=== PATIENT | male | born 1995 ===

== ENCOUNTER 2018-04-21 21:33 | Emergency (ER) | payer SELFPAY ==
[2018-04-21 22:15] VITALS: RESP 18
--- NOTE | 2018-04-21 22:29 | ED PDOC ---
Upper Extremity Pain/Injury Chief Complaint (Provider): right shoulder injury History Per: Patient History/Exam Limitations: no limitations Onset/Duration Of Symptoms: Hrs (1) Current Symptoms Are (Timing): Still Present Additional Complaint(s): 22 y/o male presents for evaluation of pain to right shoulder x 1 hour. Patient states he was playing soccer and fell on right side, since then has not been able to move shoulder due to pain. Denies numbness/weakness right upper extremity. No medication taken for relief thus far. <Jennyfer Pardo - Last Filed: 04/22/18 01:13> <Morgan Noe - Last Filed: 04/22/18 04:19> Time Seen by Provider: 04/21/18 22:22 Chief Complaint (Nursing): Upper Extremity Problem/Injury Supervising Attending Note - Supervising Attending Note The Documented history was done by the: Physician Director Of Cardiac Rehabilitation The documented physical exam was done by the: Physician Director Of Cardiac Rehabilitation The documented procedures were done by the: Physician Director Of Cardiac Rehabilitation, Attending Physician - Attestation: I have personally seen and examined this patient.: Yes I have fully participated in the care of the patient.: Yes I have reviewed all pertinent clinical information: Yes <Morgan Noe - Last Filed: 04/22/18 04:19> Past Medical History Reviewed: Historical Data, Nursing Documentation, Vital Signs Vital Signs: Last Vital Signs Temp 98.1 F 04/21/18 22:12 Pulse 94 H 04/21/18 22:12 Resp 18 04/21/18 22:12 BP 127/81 04/21/18 22:12 Pulse Ox 100 04/21/18 22:12 - Medical History PMH: No Chronic Diseases - Surgical History Surgical History: No Surg Hx - Family History Family History: States: No Known Family Hx <Jennyfer Pardo - Last Filed: 04/22/18 01:13> Vital Signs: Last Vital Signs Temp 98.1 F 04/21/18 22:12 Pulse 94 H 04/21/18 22:12 Resp 18 04/21/18 22:12 BP 127/81 04/21/18 22:12 Pulse Ox 100 04/21/18 23:27 <Morgan Noe - Last Filed: 04/22/18 04:19> - Home Medications Home Medications: Ambulatory Orders Medication Instructions Recorded Ibuprofen [Motrin Tab] 1 tab PO Q6 PRN #15 tab 04/22/18 - Allergies Allergies/Adverse Reactions: Allergies Allergy/AdvReac Type Severity Reaction Status Date / Time No Known Allergies Allergy Verified 04/21/18 22:12 Review of Systems ROS Statement: Except As Marked, All Systems Reviewed And Found Negative Musculoskeletal: Positive for: Shoulder Pain (right) <Jennyfer Pardo C - Last Filed: 04/22/18 01:13> Physical Exam - Reviewed Nursing Documentation Reviewed: Yes Vital Signs Reviewed: Yes - Physical Exam Appears: Positive for: Well, Non-toxic, No Acute Distress Skin: Positive for: Normal Color Cardiovascular/Chest: Positive for: Regular Rate, Rhythm Respiratory: Positive for: Normal Breath Sounds Extremity: Positive for: Capillary Refill (<2 sec b/l UE), Deformity (+ deformity right shoulder; limited ROM due to pain). Negative for: Swelling Neurologic/Psych: Positive for: Alert, Oriented. Negative for: Motor/Sensory Deficits <Jennyfer Pardo C - Last Filed: 04/22/18 01:13> - ECG O2 Sat by Pulse Oximetry: 100 - Other Rad right shoulder xray X-Ray: Interpreted by Me, Viewed By Me X-Ray Interpretation: +dislocation right shoulder xray post-reduction X-Ray: Viewed By Me X-Ray Interpretation: NAD - Progress ED Course And Treament: xray, IV morphine Patient educated on findings, consent obtained for right shoulder reduction with conscious sedation 23:40 Shoulder reduced successfully. Patient sleeping but arousable to verbal stimuli Patient placed in shoulder immobilizer 04/22/18 00:00 patient sleeping; arousable to verbal stimuli 00:30 Patient awake, states he is feeling better Vitals, PO challenge ordered 1:00 Patient awake, alert, oriented x3. Tolerating PO. Stable for discharge Patient educated on findings, advised follow up ortho Rx ibuprofen given RICE Return precautions given <Jennyfer Pardo C - Last Filed: 04/22/18 01:13> Procedures - Joint Reduction Joint Reduction Site: shoulder (R) Conscious Sedation: Yes Reduction Attempts: 1 Pre-Procedure NV Exam: Yes Post Joint Reduction Film: joint reduced (NV intact post-reduction) <Jennyfer Pardo C - Last Filed: 04/22/18 01:13> - Joint Reduction Joint Reduction Site: shoulder (R) Conscious Sedation: Yes <TaytramMorgan sorto - Last Filed: 04/22/18 04:19> Disposition - Patient ED Disposition Is Patient to be Admitted: No Counseled Patient/Family Regarding: Studies Performed, Diagnosis, Need For Followup, Rx Given - Disposition Disposition: Routine/Home Disposition Time: 01:00 <Jennyfer Pardo - Last Filed: 04/22/18 01:13> <Morgan Noe - Last Filed: 04/22/18 04:19> - Clinical Impression Clinical Impression: Dislocation of right shoulder joint - Disposition Referrals: Elsa Mendoza MD [Staff Provider] - Condition: IMPROVED Prescriptions: Ibuprofen [Motrin Tab] 1 tab PO Q6 PRN #15 tab PRN Reason: Pain, Moderate (4-7) Instructions: Shoulder Dislocation, Moderate Sedation in Adults Forms: [employer] (Gabonese), [facility] ED School/Work Excuse ED Procedural Sedation <Jennyfer Pardo - Last Filed: 04/22/18 01:13> - Pre Anesthesia Assessment Past Medical History: Medications Reviewed, Allergies Reviewed, Record Review Previous Surgies: Reviewed Family History/Social History: Reviewed - Physical Exam/Review of Systems Vital Signs Reviewed: Yes Cardiovascular: Regular Rate and Rhythm Respiratory/Chest: Clear to Auscultation, Good Air Exchange Neurological: CN II-XII Intact, Speech Normal Mental Status: Alert and Oriented X 3 - Pre-Procedure Airway Assessment History of difficult intubation or surgical airway(i.e trach: No Inability to extend neck:: No Mouth opening less than two finger breadth:: No Diagnosis of sleep apnea:: No Less than three finger breadth to hyoid bone:: No ASA Criteria: 1 - Healthy, normal. 2 - Mild systemic disease (No functional limitations, mildline obesity, DM withot complications, Hypertention). 3 - Severe systemic disease (Some functional limitation, stable angina, morbid obesity, controlled COPD/Asthma/CHF). 4 - Sever systemic disease constant threat to life (Unstable angina, active symptoms of COPD/Asthma, CHF/ Hypertension. 5 - Moribund ASA Clarification: ASA I Mallampati (airway): Class I - Intra-Procedure (Medications) Medications Given: Sodium Chloride (Sodium Chloride 0.9%) 1,000 mls @ 1,000 mls/hr IV .Q1H STA Stop: 04/22/18 00:10 Last Admin: 04/21/18 23:25 Dose: 1,000 mls/hr eMAR Start Stop Document 04/21/18 23:25 [email or web address] (Rec: 04/21/18 23:25 [email or web address]) Intravenous Solution Start Date 04/21/18 Start Time 23:25 End Date 04/20/18 End time 00:25 Total Infusion Time -2820 Discontinued Medications Morphine Sulfate (Morphine) 2 mg IV ONCE ONE Stop: 04/21/18 22:29 Last Admin: 04/21/18 22:37 Dose: 2 mg eMAR Start Stop Document 04/21/18 22:37 [email or web address] (Rec: 04/21/18 22:38 [email or web address]) Intravenous Solution Start Date 04/21/18 Start Time 22:38 MAR Pain Assessment Document 04/21/18 22:37 [email or web address] (Rec: 04/21/18 22:38 [email or web address]) Pain Reassessment Is this a pain reassessment? No Sleep Is patient sleeping during reassessment? No Presence of Pain Presence of Pain Yes Pain Scale Used Pain Scale Used Numeric Location Left, Right or Bilateral Right Pain Location Body Site Shoulder Description Description Constant Intensity of Pain at present 8 Pain Behavior Crying Guarding Aggravating Factors ADL's Alleviating Factors/Management Medication Techniques Alleviating Factors Medication Re-Assess: [facility] Pain Assessment Document 04/21/18 23:37 [email or web address] (Rec: 04/21/18 23:53 [email or web address]) Pain Reassessment Is this a pain reassessment? Yes Sleep Is patient sleeping during reassessment? Yes Presence of Pain Presence of Pain No Description Intensity of Pain at present 0 Morphine Sulfate (Morphine) 4 mg IVP ONCE ONE Stop: 04/21/18 23:31 Last Admin: 04/21/18 23:30 Dose: Not Given Non-Admin Reason: Patient Refused Propofol (Diprivan) 100 mg IV ONCE ONE Stop: 04/21/18 23:12 Last Admin: 04/21/18 23:24 Dose: 100 mg eMAR Start Stop Document 04/21/18 23:24 [email or web address] (Rec: 04/21/18 23:25 [email or web address]) Intravenous Solution Start Date 04/21/18 Start Time 23:35 Nguyen Agitation Sedation Document 04/21/18 23:24 [email or web address] (Rec: 04/21/18 23:25 [email or web address]) Nguyen Agitation Sedation Scale Nguyen Agitation Sedation Scale Score 0 Alert and Calm: 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 Patient was administered procedural sedation 150mg of propofol with deep sedation achieved. Patient tolerated reduction well. <Morgan Noe - Last Filed: 04/22/18 04:19> - Pre Anesthesia Assessment Chief Complaint: Upper Extremity Problem/Injury
[2018-04-21] MEDS ORDERED: Propofol 10 mg/ml Inj (20 ML) IV ONE ×2 (23:11→23:42)
[2018-04-21] MEDS ORDERED: Sodium Chloride 0.9% 1,000 ML IV STA (23:11)
[2018-04-21] MEDS ORDERED: Propofol 10 mg/ml Inj (20 ML) ONE (23:24)
[2018-04-21] MEDS ORDERED: Morphine 4 MG/ML VIAL ONE (23:25)
[2018-04-21] MEDS: Morphine 4 MG/ML VIAL IVP ONE ×2 (23:30)
[2018-04-22 01:25] VITALS: BP 120/64; PULSE 82; TEMP 97.5; O2SAT 98
--- NOTE | 2018-04-22 10:09 | RAD ---
PROCEDURE: Radiographs of the Right Shoulder HISTORY: post reduction COMPARISON: No prior. FINDINGS: BONES: No definitive evidence of acute displaced fracture nor dislocation. JOINTS: Interval reduction previously noted dislocated right humeral head. No significant degenerative osteoarthritis SOFT TISSUES: Normal. OTHER FINDINGS: None. IMPRESSION: Interval reduction previously noted dislocated right humeral head No acute fractures.
--- NOTE | 2018-04-22 10:10 | RAD ---
PROCEDURE: Radiographs of the Right Shoulder HISTORY: Status post fall with pain COMPARISON: No prior. FINDINGS: BONES: No definitive evidence of acute displaced fracture JOINTS: There is an anterior inferior dislocation right humeral head with respect to the glenoid. SOFT TISSUES: Normal. OTHER FINDINGS: None. IMPRESSION: Anterior inferior dislocation right humeral head with respect to the glenoid.
== END 2018-04-22 01:25 | disposition home or self-care (01) ==
LOC: H.ER 21:33
DX: S43.001A Unspecified subluxation of right shoulder joint, initial encounter (principal); W19.XXXA Unspecified fall, initial encounter; Y92.322 Soccer field as the place of occurrence of the external cause
CPT/HCPCS: 73030; 99284; J2270; J2704; J7030